=== PATIENT | female | born 1940 | race Caucasian/White ===

== ENCOUNTER 2018-03-10 14:56 | Inpatient (IN) ==
[2018-03-10] MEDS ORDERED: Naloxone 0.4 MG/ML INJ IVP PRN (20:41)
[2018-03-10] MEDS ORDERED: Acetaminophen 325 MG TABLET PO PRN (20:41)
[2018-03-10] MEDS ORDERED: *HR* HYDROcodone/Acet 5/325 mg TABLET PO PRN (20:41)
[2018-03-10] MEDS ORDERED: amLODIPine 5 MG TABLET PO ONE (20:43)
[2018-03-10] MEDS ORDERED: 0.9 % Sodium Chloride 500 ML IVC ONE (20:43)
[2018-03-10] MEDS ORDERED: Dextrose Gel 15 GM/37.5 ML TUBE PO PRN ×2 (20:48)
[2018-03-10] MEDS ORDERED: D5% in Water 1,000 ML IVC PRN (20:48)
[2018-03-10] MEDS ORDERED: *HR* Dextrose 50 % in Water (Syg) 50 ML SYRINGE IVP PRN (20:48)
--- NOTE | 2018-03-10 20:51 | Internal Med History&Physical ---
Date of Encounter: 03/10/18 Time of Encounter: 20:49 Internal Medicine - H&P: HPI Chief complaint: Fall Admitted From: Hospital to Hospital Transfer Plans for Post Hospital Care: Transfer Inp Rehab Fac History of present illness: Ms. Sol is a 78 year old female with Morbid Obesity, DM, HTN, Suspect CKD, who was transferred from another hospital for orthopedic evaluation following a mechanical fall. Patient is at baseline ambulatory with a cane and sometimes uses a wheelchair. She was in her usual state of health till this morning while going to the bathroom she tripped and fell face down. She states that she immediately noted that she could not move her right lower extremity. She denies chest pain, dizziness, palpitations prior to her fall. She had no neurologic deficits. She presented to outside facility where imaging workup revealed a right comminuted distal femoral fracture associated with complete destruction of the quadriceps tendon and patellar ligament. Additional workup revealed lactic acidosis with lactate of 3.2 which improved to 12.6, elevated creatinine otherwise normal CBC and urine analysis. C-spine and head and pelvic imaging were unremarkable. She was transferred here for orthopedic evaluation and surgery. The patient reports prior abdominal surgery without reaction to anesthesia. She has never smoked. She had no chest pain, leg swelling, or difficulty breathing prior to onset of her symptoms. She denies prior cardiac history. She has allergies to Avelox, quinapril, and Sudafed. Home medications are: Aspirin 81 mg daily, Darvocet-N 100 milligrams daily, Lasix 40 mg daily, Norvasc and Toprol. Laboratory evaluation at the bedside, she has no current complaints, pain control has been achieved She will be admitted as inpatient for evaluation by orthopedic surgery for total knee replacement . We will obtain stat labs including lactate and EKG for preop clearance. No current indication for echocardiogram. Past Med Surg Social Fam HX - Past Medical History Medical history: diabetes, hypertension All Systems PM: A 10-system review of systems was performed and is negative for pertinent findings except as documented above in the HPI. - Constitutional Constitutional: no chills, no fever(s), no night sweats - EENT Eyes: no change in vision, no discharge, no pain, no photophobia Ears: no ear discharge, no ear pain, no tinnitus Nose, mouth and throat: no dysphagia, no nasal discharge, no neck pain, no sore throat - Cardiovascular Cardiovascular ROS IM: as per HPI - Respiratory Respiratory: as per HPI - Gastrointestinal Gastrointestinal: no abdominal pain, no diarrhea, no hematemesis, no hematochezia, no melena, no nausea, no vomiting - Genitourinary Genitourinary: no change in urinary stream, no dysuria, no flank pain, no hematuria - Musculoskeletal Musculoskeletal ROS IM: as per HPI - Integumentary Integumentary IM: no rash, no unusual bruising - Neurological Neurological ROS: no confusion, no convulsions, no focal weakness, no numbness, no tingling, no tremor(s) - Hematologic/Lymphatic Hematologic/Lymphatic: no easy bruising - Constitutional Vitals: Temp Pulse Resp BP Pulse Ox 99.8 F H 86 20 124/73 95 03/10/18 20:21 03/10/18 20:21 03/10/18 20:21 03/10/18 20:21 03/10/18 20:21 General appearance: Present: A&O X 3, morbidly obese, pleasant, no acute distress - Head Head exam: Present: atraumatic, normocephalic - Eye Eye exam: Present: PERRL, conjuntiva pink, sclera anicteric Pupils: Present: PERRL - Neck Neck exam general surgery: Present: supple, trachea midline. Absent: lymphadenopathy - Respiratory Respiratory exam: Present: CTAB. Absent: accessory muscle use, rales, rhonchi, wheezes - Cardiovascular Cardiovascular exam: Present: RRR, +S1, +S2. Absent: diastolic murmur, gallop, rubs, systolic murmur - GI/Abdominal GI/Abdominal exam: Present: normal bowel sounds, soft, no peritoneal signs. Absent: distended, tenderness - Extremities Exam Extremities exam: Present: warm, radial pulses palpable and symmetrical. Absent : calf tenderness, cyanotic, pedal edema - Neurological Exam Neurological exam: Present: alert, CN II-XII intact, oriented X3, no focal deficits. Absent: pronater drift, facial droop, speech deficit - Skin Skin exam: Present: dry, intact - Assessment and plan (1) Morbid obesity with BMI of 50.0-59.9, adult Current Visit: Yes Status: Chronic Assessment and plan: Lifestyle modification. (2) Diabetes mellitus Current Visit: Yes Status: Chronic Assessment and plan: Patient with long-term diabetes mellitus type 2 on oral medications. Diabetic diet. Correctional dose insulin for now. Nothing by mouth from midnight for surgery tomorrow. Qualifiers: Diabetes mellitus type: type 2 Diabetes mellitus nursing home insulin use: without nursing home use Diabetes mellitus complication status: with unspecified complications Qualified Code(s): E11.8 - Type 2 diabetes mellitus with unspecified complications (3) Femoral fracture Current Visit: Yes Status: Acute Assessment and plan: Patient with comminuted completely displaced distal femoral fracture with disrupted quadriceps tendon and patellar ligament. Orthopedics has been consulted and spoke with Dr. Pearl who will evaluate the patient tonight. For possible surgery tomorrow. Ensure pain control. Patient with BMI of 50, DVT prophylaxis with Lovenox twice a day. Patient is low risk for cardiovascular events given her noncardiac history, with no cardiac symptoms preceding her fall. We will obtain a routine EKG Qualifiers: Encounter type: initial encounter Femur location: distal epiphysis Fracture type: closed Fracture alignment: displaced Laterality: right Qualified Code(s): S72.441A - Displaced fracture of lower epiphysis (separation ) of right femur, initial encounter for closed fracture (4) Hypertension Current Visit: Yes Status: Chronic Assessment and plan: Continue home Norvasc 5 mg daily, Toprol 100 mg daily. Hold Lasix and losartan due to renal insufficiency from labs from outside facility, and risk of worsening kidney function post-op Qualifiers: Hypertension type: essential hypertension Qualified Code(s): I10 - Essential (primary) hypertension (5) Lactic acidosis Current Visit: Yes Status: Acute Assessment and plan: Lactate of 3.28-2.68 from outside facility Repeat lactate here 1.4. Continue to monitor (6) Renal insufficiency Current Visit: Yes Status: Acute Assessment and plan: no prior labs to compare with Obtain stat chem 500cc bolus Obtain renal USS Possible CKD in patient with DM Avoid nephrotoxins, hold ARB, Lasix - Time Spent With Patient Total time spent is greater than 50% in coordination of care (as documented) at patient's floor/unit and/or counseling patient:
[2018-03-10] MEDS ORDERED: Insulin LISPRO 300 UNITS/3 ML VIAL SQ SCH (21:00)
[2018-03-10 21:08] LABS: Basophils % 0.2 %; Hematocrit 33.8 % (35.3-44.9); Hemoglobin 10.7 g/dL (11.5-15.4); Immature Granulocytes % 0.3 % (0-4); Lymphocytes # 0.6 K/mcL (0.6-4.6); Lymphocytes % 6.6 %; Mean Corpuscular HGB Conc 31.7 g/dL (31.6-35.5); Mean Corpuscular Hemoglobin 28.8 pg (28.0-33.3); Mean Corpuscular Volume 90.9 fL (83.0-100.0); Mean Platelet Volume 8.9 fL (9.4-12.4); Monocytes # 0.4 K/mcL (0.0-1.3); Monocytes % 4.4 %; Neutrophils # 8.3 K/mcL (1.6-8.9); Platelet Count 300 K/mcL (140-400); Red Blood Count 3.72 M/mcL (3.82-4.97); Red Cell Distribution Width 14.9 % (11.5-14.5); Segmented Neutrophils % 88.5 %
[2018-03-10 21:13] LABS: INR 1.1
[2018-03-10 21:15] LABS: Activated Partial Thrombo Time 30.6 Seconds (26.0-36.0)
[2018-03-10 21:26] LABS: Calcium 8.3 mg/dL (8.6-10.3); Potassium 4.2 mEq/L (3.5-5.1)
[2018-03-10 21:27] LABS: Estimated Average Glucose 143 mg/dl; Hemoglobin A1C 6.6 %
--- NOTE | 2018-03-10 21:39 | Anesthesia Evaluation PreOp ---
Date of Encounter: 03/10/18 Time of Encounter: 21:36 - Past History Planned Operation: R distal femoral replacement Cardiac History: HTN, Hyperlipidemia Pulmonary History: Denies Any Significant HX, Snore FAUCET POLISHER History: Denies Any Significant HX Other Medical History: Renal (renal insufficiency), Diabetes Type II, Other ( BMI 50) Anesthesia History: No Prior Anesthetic Complications, Past Anesthesia ( hysterectomy, cholecystectomy) - Meds/Allergy Pre-op Review Medications Reviewed: Yes Allergies Reviewed: Yes Beta Blockers on Current Med List: Yes Anesthesia Results - Labs 03/10/18 20:55 03/10/18 20:55 - Imaging EKG: pending Anesthesia Exam Vital Signs/O2 Sat, Most Current Temp Pulse Resp BP Pulse Ox 99.8 F H 86 20 124/73 95 03/10/18 20:21 03/10/18 20:21 03/10/18 20:21 03/10/18 20:21 03/10/18 20:21 - HEENT Pupil (Motor): Pupils equal, EOMI Mallampati: III Teeth: Edentulous Oral Opening: Greater than 3 - FAUCET POLISHER LOC: Oriented FAUCET POLISHER Motor: Normal RUE, Normal LUE, Normal LLE, Normal Face, Deficit RLE (femur fracture) FAUCET POLISHER Sensory: Normal: RUE, LUE, RLE, LLE, Face - Cardiac Rhythm: Regular - Pulmonary Breath Sounds: bilateral Clear Respiratory Effort: Symmetrical Anesthesia Assess/Plan ASA Score: 3 Modified Betsy Scale for Level of Consciousness: Cooperative, oriented, and tranquil Anesthetic Plan: General, Regional (R femoral nn block) Monitoring Plan: Standard Monitors Recovery Plan: PACU
[2018-03-10] MEDS: *HR* OxyCODONE Immed Rel 5 MG TABLET PO PRN (23:02)
[2018-03-11] MEDS: *HR* Enoxaparin 30 MG/0.3 ML SYRINGE SQ SCH ×2 (04:45→20:48)
[2018-03-11] MEDS: *HR* OxyCODONE Immed Rel 5 MG TABLET PO PRN ×3 (04:46→19:37)
[2018-03-11 06:15] LABS: Basophils % 0.2 %; Eosinophils % 0.2 %; Hematocrit 33.8 % (35.3-44.9); Hemoglobin 10.7 g/dL (11.5-15.4); Immature Granulocytes % 0.5 % (0-4); Lymphocytes # 0.9 K/mcL (0.6-4.6); Mean Corpuscular HGB Conc 31.7 g/dL (31.6-35.5); Mean Corpuscular Hemoglobin 28.7 pg (28.0-33.3); Mean Corpuscular Volume 90.6 fL (83.0-100.0); Mean Platelet Volume 9.1 fL (9.4-12.4); Monocytes # 0.5 K/mcL (0.0-1.3); Monocytes % 5.6 %; Neutrophils # 7.1 K/mcL (1.6-8.9); Platelet Count 300 K/mcL (140-400); Red Blood Count 3.73 M/mcL (3.82-4.97); Segmented Neutrophils % 83.5 %
[2018-03-11 06:32] LABS: Calcium 8.5 mg/dL (8.6-10.3)
[2018-03-11] MEDS: Insulin LISPRO 300 UNITS/3 ML VIAL SQ SCH ×4 (07:52→22:56)
--- NOTE | 2018-03-11 08:30 | Orthopedic Consult Note ---
Date of Encounter: 03/11/18 Time of Encounter: 08:29 History of Present Illness HPI: Ms. Sol is a 78 year old female With a fall yesterday with a fracture the right distal femur. Patient denies head trauma. Patient is neurovascularly intact decreased motion secondary pain x-rays reviewed show comminuted displaced distal femur fracture. Based on the patient's age and bone quality and fracture pattern recommendation is for right knee distal femoral replacement with total knee. We reviewed the risks and benefits as well as recovery. All questions were answered. The patient agreed to this treatment plan and appeared to understand the plan is reviewed. Past Med Surg Social Fam HX - Past Medical History Medical history: diabetes, hypertension - Social History Smoking Status: Never smoker Smokeless Tobacco Status: No Alcohol use: none Drug use: none - Family History Mother Adopted: Lindstrom: Dede Age: 50 Family Member Ethnicity: Non- Living Status: Age at : 50 Cause of : cancer Hx Family Cardiac Disorders: No Hx Family Respiratory Disorders: No Hx Family Cancer: Yes Hx Family GI Disorders: No Hx Family Genitourinary Disorders: No Hx Family Endocrine Disorder: No Hx Family Musculoskeletal Disorders: No Hx Family Neuromuscular Disorders: No Hx Family Neurologic Disorders: No Hx Family HEENT Disorders: No Hx Family Autoimmune Disorders: No Hx Family Reproductive Disorders: No Hx Family Psychosocial Disorders: No Hx Family Medical Disorders: No Medications and Allergies 3 Allergy/AdvReac Type Severity Reaction Status Date / Time moxifloxacin [From Avelox] Allergy Unknown unknown Verified 03/10/18 21:54 pseudoephedrine AdvReac Difficulty Verified 03/10/18 21:54 [From Sudafed] Breathing quinapril AdvReac Swelling Verified 03/10/18 21:54 of Lip/Tongue/Throat All Systems Reviewed: The remainder of the systems were reviewed and are negative Physical Exam - Constitutional Vitals: Temp Pulse Resp BP Pulse Ox 98.2 F 84 16 138/59 95 03/11/18 06:32 03/11/18 06:32 03/11/18 06:32 03/11/18 06:32 03/11/18 06:32 Results - Labs Result Diagrams: 03/11/18 05:59 03/11/18 05:59 Labs: Abnormal lab results RBC 3.73 M/mcL (3.82-4.97) L 03/11/18 05:59 Hgb 10.7 g/dL (11.5-15.4) L 03/11/18 05:59 Hct 33.8 % (35.3-44.9) L 03/11/18 05:59 RDW 15.0 % (11.5-14.5) H 03/11/18 05:59 MPV 9.1 fL (9.4-12.4) L 03/11/18 05:59 Creatinine 1.42 mg/dL (0.60-1.20) H 03/11/18 05:59 Est GFR ( Amer) 43 (> 60) L 03/11/18 05:59 Est GFR (Non-Af Amer) 36 (> 60) L 03/11/18 05:59 Glucose 148 mg/dL (70-105) H 03/11/18 05:59 POC Glucose 142 mg/dL (70-99) H 03/11/18 07:42 Hemoglobin A1c 6.6 % (-5.6) H 03/10/18 20:55 Calcium 8.5 mg/dL (8.6-10.3) L 03/11/18 05:59 H & H 03/10/18 03/11/18 Range/Units 20:55 05:59 Hgb 10.7 L 10.7 L (11.5-15.4) g/dL Hct 33.8 L 33.8 L (35.3-44.9) % All other labs normal. Consult Discharge Plan - Plan Referrals: Eliazar Rubio DO [Primary Care Provider] -
[2018-03-11] MEDS ORDERED: Aspirin Enteric Coated 81 MG Tablet PO SCH (09:00)
[2018-03-11] MEDS ORDERED: Metoprolol XL (24 HR) Succ 50 MG TAB.ER.24H PO SCH (09:00)
[2018-03-11] MEDS ORDERED: amLODIPine 5 MG TABLET PO SCH (09:00)
[2018-03-11] MEDS: Ondansetron 4 MG/2 ML VIAL IVP PRN ×2 (09:16→19:50)
--- NOTE | 2018-03-11 15:18 | Electrocardiograph Report ---
[place] [id number] Test Date: 2018-03-10 Pat Name: Bryanna Sol Department: 114 Room: [facility] Gender: F Meat Passer: SHANNAN : 1940 Requested By: Danny Berger Order Number: [id number] Reading MD: Karina Bustos Measurements Intervals [place] Rate: 88 P: -15 [place]: 150 QRS: 43 QRSD: 93 T: 170 QT: 378 QTc: 424 Interpretive Statements ARTIFACT LIMITS INTERPRETATION RECOMMEND REPEAT ECG Electronically Signed On 03-11-2018 15:17:00 EDT by Karina Bustos
[2018-03-11] MEDS ORDERED: ROPIVACAINE HCL/PF 0.5% 30 ML VIAL ONE (16:03)
[2018-03-11] MEDS ORDERED: *HR* FentaNYL (PF) 100 MCG/2 ML VIAL ONE (16:10)
[2018-03-11] MEDS ORDERED: *HR* Midazolam HCl 2 MG/2 ML VIAL ONE ×2 (16:11→16:12)
[2018-03-11] MEDS ORDERED: *HR* Midazolam HCl 5 MG/5 ML VIAL IVP ONE (16:11)
[2018-03-11] MEDS ORDERED: *HR* Propofol 200 MG/20 ML VIAL IVP ONE (16:11)
[2018-03-11] MEDS ORDERED: Ethanol\\Acetic Acid\\Na Ace\\Ben 1,000 ML IRRIG.SOLN IR ONE (16:13)
[2018-03-11] MEDS ORDERED: *HR* Succinylcholine 200 MG/10 ML VIAL IVP ONE (16:13)
[2018-03-11] MEDS ORDERED: Lidocaine -MPF 2% 2 ML VIAL ONE (16:13)
[2018-03-11] MEDS ORDERED: Lidocaine -MPF 4% 5 ML AMPUL ONE (16:14)
[2018-03-11] MEDS ORDERED: Bupivacaine/Clonidine Syringe 1 EACH SYRINGE ONE (16:20)
--- NOTE | 2018-03-11 17:31 | Internal Med Progress Note ---
Date of Encounter: 03/11/18 Time of Encounter: 12:20 - Assessment and plan (1) Femoral fracture Current Visit: Yes Status: Acute Assessment and plan: ER imaging workup revealed a right comminuted distal femoral fracture associated with complete destruction of the quadriceps tendon and patellar ligament. Orthopedic surgery consulted, plan for right knee distal femoral replacement with total knee. Continue pain control with when necessary oxycodone. Physical and occupational therapy evaluation post surgery. Qualifiers: Encounter type: initial encounter Femur location: distal epiphysis Fracture type: closed Fracture alignment: displaced Laterality: right Qualified Code(s): S72.441A - Displaced fracture of lower epiphysis (separation ) of right femur, initial encounter for closed fracture (2) Morbid obesity with BMI of 50.0-59.9, adult Current Visit: Yes Status: Chronic (3) Diabetes mellitus Current Visit: Yes Status: Chronic Assessment and plan: Blood sugars noted to be well controlled. Continue Accu-Chek blood glucose monitoring with sliding scale insulin. Diabetic diet. Qualifiers: Diabetes mellitus type: type 2 Diabetes mellitus remote computer terminal operator insulin use: without remote computer terminal operator use Diabetes mellitus complication status: with unspecified complications Qualified Code(s): E11.8 - Type 2 diabetes mellitus with unspecified complications (4) Hypertension Current Visit: Yes Status: Chronic Qualifiers: Hypertension type: essential hypertension Qualified Code(s): I10 - Essential (primary) hypertension (5) Lactic acidosis Current Visit: Yes Status: Resolved Assessment and plan: Unclear etiology. Improved with IV hydration. No evidence of infection. (6) Chronic kidney disease, stage 3 Current Visit: Yes Status: Chronic Assessment and plan: Serum creatinine at baseline, 1.42 today. Continue to monitor closely. - Time Spent With Patient Total time spent is greater than 50% in coordination of care (as documented) at patient's floor/unit and/or counseling patient: - Subjective Interval history: Continues to have significant right knee and leg pain. No chest pain, shortness of breath, fever, chills. Awaiting orthopedic surgery this evening. - Constitutional Vitals: Temp Pulse Resp BP Pulse Ox 98.3 F 79 16 152/67 99 03/11/18 12:34 03/11/18 16:40 03/11/18 16:40 03/11/18 16:40 03/11/18 16:40 General appearance: Present: mild distress, A&O X 3, morbidly obese, answers questions appropriately - Respiratory Respiratory exam: Present: CTAB (Coarse breath sounds bilaterally). Absent: accessory muscle use, rales, rhonchi, wheezes - Cardiovascular Cardiovascular exam: Present: RRR, +S1, +S2. Absent: diastolic murmur, gallop, rubs, systolic murmur - GI/Abdominal GI/Abdominal exam: Present: normal bowel sounds, soft (obese), no peritoneal signs. Absent: distended, tenderness - Extremities Exam Extremities exam: Present: pedal edema, warm, radial pulses palpable and symmetrical. Absent: calf tenderness, cyanotic Additional comments: right knee tenderness - Neurological Exam Neurological exam: Present: CN II-XII intact, oriented X3, no focal deficits. Absent: pronater drift, facial droop, speech deficit Internal Medicine: Result - Labs CBC & Chem 7: 03/11/18 05:59 03/11/18 05:59 Labs: Short CBC 03/10/18 03/11/18 Range/Units 20:55 05:59 WBC 9.4 8.5 (4.3-11.1) K/mcL Hgb 10.7 L 10.7 L (11.5-15.4) g/dL Hct 33.8 L 33.8 L (35.3-44.9) % Plt Count 300 300 (140-400) K/mcL Neutrophils # 8.3 7.1 (1.6-8.9) K/mcL BMP 03/10/18 03/11/18 20:55 05:59 Sodium 137 139 Potassium 4.2 4.0 Chloride 102 103 Carbon Dioxide 28 26 BUN 23 22 Creatinine 1.41 H 1.42 H Glucose 190 H 148 H Calcium 8.3 L 8.5 L - ABG Interpretation ABG results: PT/INR, D-dimer PT 12.0 Seconds (9.4-12.1) 03/10/18 20:55 - Impressions Impressions Femur X-Ray 03/10/18 21:47 IMPRESSION: Comminuted, impacted, angulated and displaced distal femur fracture. D/ / Miko Rutherford MD / Miko Rutherford MD Interpreting Provider: Miko Rutherford MD Consult Discharge Plan - Plan Referrals: Eliazar Rubio DO [Primary Care Provider] -
[2018-03-11] MEDS ORDERED: Propofol 500 MG/50 ML INFUS..BTL ONE (17:51)
--- NOTE | 2018-03-11 18:10 | Anesthesia Procedures ---
Date of Encounter: 03/11/18 Time of Encounter: 16:45 Procedures: Anesthesia - Nerve Block Procedure Date: 03/11/18 Time: 16:45 Allergies/Adv Reactions: see chart Pre-op Diagnosis: right distal femur fx Surgical Procedure: total knee right Checklist: Correct Patient Identifier, Correct procedure, History checked (with kim jacob crna) Correct side: Right Blood Thinner: No Monitor Applied: EKG, BP, Pulse Oximetry Supplemental Oxygen via Nasal Cannula (L/min): 2 Sedation: Versed (mg): 2 Sedation: Fentanyl (mcg): 50 Indication: Post Op Analgesia Pre-op Neuro Deficits: No Block Type: Femoral Catheter placed: No Sterile Technique: Yes Ultrasound used: Yes Anatomy identified: Yes Visual spread of Local: Yes Neuro Stimulation: Yes Nerve Stimulator Range: 0.2 - 0.4 mA Blood on Needle Aspiration: No Smooth Injection of Local: Yes Pain with Injection of Local: No Prep: Chlorhexadine Needle: 21 x 100 mm Stimuplex Local: Ropivacaine Volume (cc): 30 Number of Attempts: 1 Complications: None/effective block Vitals: see nurses notes for vitals patient stable throughout
[2018-03-11] MEDS ORDERED: ceFAZolin 3,000 MG in Water for inj. (sterile) 30 ML IVP ONE (18:17)
[2018-03-11] MEDS ORDERED: Dexamethasone 4 MG/ML VIAL ONE (18:21)
[2018-03-11] MEDS ORDERED: Ondansetron 4 MG/2 ML VIAL ONE (18:21)
[2018-03-11] MEDS ORDERED: *HR* Meperidine 25 MG/ML SYRINGE IVP PRN (18:56)
[2018-03-11] MEDS ORDERED: MORPHINE SUL Oral CONC 10 MG/0.5 ML ORAL.SYG SL PRN (18:56)
[2018-03-11] MEDS ORDERED: *HR* Promethazine 25 MG/ML VIAL IVP PRN (18:56)
[2018-03-11] MEDS ORDERED: *HR* Labetalol 20 MG/4 ML SYRINGE IVP PRN (18:56)
[2018-03-11] MEDS ORDERED: *HR* OxyCODONE Immed Rel 5 MG TABLET PO PRN (18:56)
--- NOTE | 2018-03-11 19:17 | Orthopedic Operative Note ---
Date of procedure: 03/11/18 Pre-op diagnosis: Displaced comminuted right distal femur fracture Post-op diagnosis: same Procedure: IProcedure: Right is still femoral total knee replacement Estimated blood loss: 500 mL Hardware: Biomet distal femoral replacement 7 cm femur, 3 cm segment, 15.5 x 150 stem, 67 x 160 tibia 12 Natalia 34 patella Auxiliary components tibial bushing axle femoral bushings lock pin Dictation of procedure: Patient brought to the operating placed on the operating table after general anesthesia was administered the left lower extremity was prepped and draped in the sterile surgical fashion the patient received IV antibiotics prior to incision. A longitudinal incision was made centered over the patella. The incision was made through the skin and subcutaneous tissue hemostasis was obtained with Bovie cautery. Using careful sharp dissection the extensor mechanism was identified. A medial parapatellar approach was performed. To preserve tissue along the medial aspect of the patella to protect the patella tendon. Using careful sharp dissection a field PCL medial lateral menisci were excised. Patient had a comminuted displaced fracture distal femur. The distal femoral fracture fragment and its pieces were dissected free subperiosteally. The tibia was prepared first was reamed to 160 stem stem. The tibia was sized to 67 This was a monoblock construct had good fit and fixation. Attention was then turned to the femur. The femur was reamed up to a size 15.5 x 150 A 15 trial stem was impacted in place and the 30 segment was dialed in. With the 12 trial Natalia elected. Full flexion full extension no instability, the patella was everted the patella cut was made along the quadriceps and patella tendon. The patella sized to a 3444 Was seated lug holes are drilled. Patient had excellent patella tracking. All trial components were removed. The knee sat for 2 minutes with a antibacterial solution while components were assembled on the back table. The monoblock tibia cemented first and impacted in place. The femoral component once assembled was impacted in place in the appropriate orientation. The tibial bushing the femoral bushings were locked in place the axle was used to articulate the tibial and femoral components and this was secured with the locking pin. The patella was cemented and held in place with patellar holding clamp. After the cement hardened the knee was taken through range of motion and had excellent patella tracking. The knee was irrigated out pulse irrigation. The extensor mechanism was closed with a running # 2 FiberWire suture and a #2 PDS suture. The deep tissue was irrigated and closed with #2 PDS suture superficially with 0 PDS suture skin was closed with skin meeta. Patient placed in a sterile dressing postoperative brace extubated transferred to recovery room in stable condition. Anesthesia: GETA Surgeon: Baljeet Souza Was there an loan officer assistant present: No Estimated blood loss (cc): 500 Condition: stable Disposition: PACU
[2018-03-11 19:55] LABS: Hematocrit 30.7 % (35.3-44.9); Hemoglobin 9.7 g/dL (11.5-15.4)
[2018-03-11] MEDS ORDERED: Acetaminophen IV 1,000 MG/100 ML INFUS..BTL ONE (20:15)
[2018-03-11] MEDS ORDERED: Acetaminophen IV 1,000 MG/100 ML INFUS..BTL IVPB ONE (20:30)
[2018-03-11] MEDS ORDERED: D5% in Water 1,000 ML IVC PRN (20:50)
[2018-03-11] MEDS ORDERED: Naloxone 0.4 MG/ML INJ IVP PRN (20:50)
[2018-03-11] MEDS ORDERED: Ringers Solution, Lactated 1,000 ML IVC SCH (20:50)
[2018-03-11] MEDS ORDERED: Temazepam 15 MG CAPSULE PO PRN (20:50)
[2018-03-11] MEDS ORDERED: Dextrose Gel 15 GM/37.5 ML TUBE PO PRN ×2 (20:50)
[2018-03-11] MEDS ORDERED: MOM Conc 10 ML UD.LIQ PO PRN (20:50)
[2018-03-11] MEDS ORDERED: *HR* Dextrose 50 % in Water (Syg) 50 ML SYRINGE IVP PRN (20:50)
[2018-03-11] MEDS ORDERED: Ondansetron 4 MG/2 ML VIAL IVP PRN (20:50)
[2018-03-11] MEDS ORDERED: Sennosides 8.6 MG TABLET PO PRN (20:50)
--- NOTE | 2018-03-11 20:59 | Anesthesia Evaluation Post Op ---
Date of Encounter: 03/11/18 Time of Encounter: 20:58 - Vital Signs Vital Signs: Vital Signs/O2 Sat, Most Current Temp Pulse Resp BP Pulse Ox 97.3 F L 75 20 139/67 100 03/11/18 20:39 03/11/18 20:39 03/11/18 20:39 03/11/18 20:39 03/11/18 20:39 - Lungs Lungs: Clear Ascult./Percussion - Airway Airway: Non-obstructed - Cardiovascular Regular Rate - Mental Status Mental Status: Alert & Oriented, Answers Appropriately - Pain Pain Scale used: Numeric (1 - 10) (tolerable) - Hydration Hydration: Ice chips - Discharge PostOp Status: Transfer Patient to floor
[2018-03-11] MEDS: *HR* HYDROcodone/Acet 5/325 mg TABLET PO PRN (22:57)
[2018-03-12] MEDS: CeFAZolin Syr 3,000MG/30 ML 3,000 MG/30 ML SYRINGE IVPB SCH ×2 (00:06→08:11)
[2018-03-12] MEDS: *HR* OxyCODONE Immed Rel 5 MG TABLET PO PRN ×2 (04:08→10:50)
[2018-03-12 05:08] LABS: Hematocrit 26.3 % (35.3-44.9); Hemoglobin 8.2 g/dL (11.5-15.4)
[2018-03-12] MEDS: *HR* HYDROcodone/Acet 5/325 mg TABLET PO PRN ×2 (05:42→17:10)
[2018-03-12] MEDS: *HR* Enoxaparin 30 MG/0.3 ML SYRINGE SQ SCH ×2 (05:43→17:51)
[2018-03-12] MEDS ORDERED: Furosemide 20 MG/2 ML VIAL IVP ONE ×2 (06:42→17:49)
[2018-03-12] MEDS: Aspirin Enteric Coated 81 MG Tablet PO SCH (08:11)
[2018-03-12] MEDS: amLODIPine 5 MG TABLET PO SCH (08:11)
[2018-03-12] MEDS: Metoprolol XL (24 HR) Succ 50 MG TAB.ER.24H PO SCH (08:12)
[2018-03-12] MEDS: Insulin LISPRO 300 UNITS/3 ML VIAL SQ SCH ×4 (08:18→21:07)
[2018-03-12] MEDS: *HR* Pioglitazone 15 MG TABLET PO SCH (09:30)
--- NOTE | 2018-03-12 09:45 | Orthopedics Progress Note ---
Date of Encounter: 03/12/18 Time of Encounter: 09:45 Subjective Interval history: Patient was seen this morning doing well without complaints. Afebrile vital signs stable. Operative extremity: Neurovascularly intact Dressing clean dry and intact Calves nontender Assessment and plan: Continue with postoperative care Hemoglobin 8.2 transfuse 2 units. Objective Vital signs: Vital Signs Temp Pulse Resp BP Pulse Ox 03/12/18 06:48 97.8 F 80 17 123/52 97 03/12/18 04:46 97.9 F 78 16 120/54 93 03/12/18 00:01 68 15 134/56 2 03/11/18 23:37 97.8 F 68 14 130/52 98 03/11/18 22:55 98.5 F 73 16 136/48 95 03/11/18 22:00 98.3 F 78 16 150/62 92 03/11/18 21:30 97.6 F 86 16 91 03/11/18 21:00 98.2 F 78 16 144/65 91 03/11/18 20:39 97.3 F L 75 20 139/67 100 03/11/18 20:29 97.3 F L 75 20 151/66 100 03/11/18 20:19 78 16 149/68 99 03/11/18 20:09 78 20 131/71 91 03/11/18 19:59 97.7 F 79 20 144/68 93 03/11/18 19:49 80 20 128/61 93 03/11/18 19:39 77 20 138/54 94 03/11/18 19:29 98.2 F 86 20 150/67 96 03/11/18 16:40 79 16 152/67 99 03/11/18 12:34 98.3 F 80 16 136/57 94 Intake and Output 03/11/18 03/12/18 03/12/18 23:59 07:59 15:59 Intake Total 30 / 30 Output Total 500 / 500 200 / 200 Balance -500 / -500 -170 / -170 Intake: IV Fluids 30 / 30 Ancef Syringe 3,000 MG/30 ML 3, 30 / 30 000 mg In 30 ml @ 200 mls/hr IVPB Q8HR YUNIEL Rx#:[id number] Output: Estimated Blood Loss 500 / 500 Catheter 200 / 200 Other: Blood Glucose* 184 189 - Labs CBC & BMP: 03/12/18 04:00 03/11/18 05:59 Labs: Abnormal lab results RBC 3.73 M/mcL (3.82-4.97) L 03/11/18 05:59 Hgb 8.2 g/dL (11.5-15.4) L D 03/12/18 04:00 Hct 26.3 % (35.3-44.9) L 03/12/18 04:00 RDW 15.0 % (11.5-14.5) H 03/11/18 05:59 MPV 9.1 fL (9.4-12.4) L 03/11/18 05:59 Creatinine 1.42 mg/dL (0.60-1.20) H 03/11/18 05:59 Est GFR ( Amer) 43 (> 60) L 03/11/18 05:59 Est GFR (Non-Af Amer) 36 (> 60) L 03/11/18 05:59 Glucose 148 mg/dL (70-105) H 03/11/18 05:59 POC Glucose 189 mg/dL (70-99) H 03/12/18 07:50 Hemoglobin A1c 6.6 % (-5.6) H 03/10/18 20:55 Calcium 8.5 mg/dL (8.6-10.3) L 03/11/18 05:59 - VTE Documentation of Mechanical Device: Venous foot pump, device Consult Discharge Plan - Plan Referrals: Eliazar Rubio DO [Primary Care Provider] -
[2018-03-12 12:04] LABS: Calcium 8.4 mg/dL (8.6-10.3); Potassium 4.4 mEq/L (3.5-5.1)
[2018-03-12] MEDS: *HR* Morphine Sulfate SR (12 HR) 30 MG TABLET.ER PO SCH ×2 (13:03→21:07)
[2018-03-12] MEDS ORDERED: 0.9 % Sodium Chloride 250 ML ONE ×2 (13:41→20:56)
--- NOTE | 2018-03-12 16:48 | Internal Med Progress Note ---
Date of Encounter: 03/12/18 Time of Encounter: 12:20 - Assessment and plan (1) Femoral fracture Current Visit: Yes Status: Acute Assessment and plan: ER imaging workup revealed a right comminuted distal femoral fracture associated with complete destruction of the quadriceps tendon and patellar ligament. Orthopedic surgery on board, underwent right knee distal femoral replacement with total knee, postoperative day 1. Continue pain control with when necessary oxycodone. Restart home dose of extended release morphine sulfate. Noted to have postoperative blood loss anemia, hemoglobin dropped to 8.2. 2 units PRBC have been ordered by orthopedics. Physical and occupational therapy evaluation noted, recommend inpatient rehabilitation placement. Consult social insurance administrator. Qualifiers: Encounter type: initial encounter Femur location: distal epiphysis Fracture type: closed Fracture alignment: displaced Laterality: right Qualified Code(s): S72.441A - Displaced fracture of lower epiphysis (separation ) of right femur, initial encounter for closed fracture (2) Morbid obesity with BMI of 50.0-59.9, adult Current Visit: Yes Status: Chronic (3) Diabetes mellitus Current Visit: Yes Status: Chronic Assessment and plan: Blood sugars noted to be fairly controlled. Continue Accu-Chek blood glucose monitoring with sliding scale insulin. Patient refuses subcutaneous insulin, has been restarted on home dose of Actos. Diabetic diet. Qualifiers: Diabetes mellitus type: type 2 Diabetes mellitus lobsterman insulin use: without lobsterman use Diabetes mellitus complication status: with unspecified complications Qualified Code(s): E11.8 - Type 2 diabetes mellitus with unspecified complications (4) Hypertension Current Visit: Yes Status: Chronic Qualifiers: Hypertension type: essential hypertension Qualified Code(s): I10 - Essential (primary) hypertension (5) Lactic acidosis Current Visit: Yes Status: Resolved (6) Chronic kidney disease, stage 3 Current Visit: Yes Status: Chronic Assessment and plan: Unknown baseline, no previous labs available. Serum creatinine slightly worse at 1.69 today. Check CK to rule out rhabdomyolysis due to significant fall and myalgia. Continue to hold diuretic and ARB. Continue IV hydration and monitor serum creatinine closely. Renal ultrasound has been ordered but patient refuses. - Time Spent With Patient Total time spent is greater than 50% in coordination of care (as documented) at patient's floor/unit and/or counseling patient: - Subjective Interval history: Reports generalized body aches along with significant bilateral knee pain and muscle spasms. Refuses to get out of bed to use bedside commode due to pain. No fever, chills, nausea, vomiting or diarrhea. - Constitutional Vitals: Temp Pulse Resp BP Pulse Ox 99.1 F 94 18 126/76 93 03/12/18 16:22 03/12/18 16:22 03/12/18 16:22 03/12/18 16:22 03/12/18 16:22 General appearance: Present: mild distress, A&O X 3, morbidly obese, answers questions appropriately - Respiratory Respiratory exam: Present: decreased breath sounds (Bilateral bases), CTAB. Absent: accessory muscle use, rales, rhonchi, wheezes - Cardiovascular Cardiovascular exam: Present: RRR, +S1, +S2. Absent: diastolic murmur, gallop, rubs, systolic murmur - GI/Abdominal GI/Abdominal exam: Present: normal bowel sounds, soft (obese), no peritoneal signs. Absent: distended, tenderness - Extremities Exam Extremities exam: Present: warm, radial pulses palpable and symmetrical. Absent : calf tenderness, cyanotic, pedal edema Additional comments: Status post right knee surgery Internal Medicine: Result - Labs CBC & Chem 7: 03/12/18 04:00 03/12/18 11:35 Labs: Short CBC 03/11/18 03/12/18 Range/Units 19:46 04:00 Hgb 9.7 L 8.2 L D (11.5-15.4) g/dL Hct 30.7 L 26.3 L (35.3-44.9) % BMP 03/12/18 11:35 Sodium 138 Potassium 4.4 Chloride 102 Carbon Dioxide 29 BUN 25 H Creatinine 1.69 H Glucose 192 H Calcium 8.4 L - ABG Interpretation ABG results: PT/INR, D-dimer PT 12.0 Seconds (9.4-12.1) 03/10/18 20:55 - Impressions Impressions Knee X-Ray 03/11/18 17:42 IMPRESSION: Interval placement of metallic right knee prosthesis. D/ / Elizabeth Craft Cha, MD / Elizabeth Craft Cha, MD Interpreting Provider: Elizabeth Craft Cha, MD - VTE Documentation of Mechanical Device: Venous foot pump, device Consult Discharge Plan - Plan Referrals: Eliazar Rubio DO [Primary Care Provider] -
[2018-03-13] MEDS ORDERED: Furosemide 20 MG/2 ML VIAL IVP ONE (00:13)
[2018-03-13] MEDS: *HR* HYDROcodone/Acet 5/325 mg TABLET PO PRN ×4 (00:30→18:47)
[2018-03-13 02:37] LABS: Hematocrit 29.3 % (35.3-44.9); Hemoglobin 9.3 g/dL (11.5-15.4)
[2018-03-13 02:56] LABS: Potassium 3.8 mEq/L (3.5-5.1)
[2018-03-13] MEDS: Acetaminophen 325 MG TABLET PO PRN ×2 (03:47→11:19)
[2018-03-13] MEDS: *HR* Enoxaparin 30 MG/0.3 ML SYRINGE SQ SCH ×2 (06:24→16:39)
[2018-03-13] MEDS: Insulin LISPRO 300 UNITS/3 ML VIAL SQ SCH ×4 (08:31→21:48)
[2018-03-13] MEDS: *HR* Pioglitazone 15 MG TABLET PO SCH (08:35)
[2018-03-13] MEDS: Aspirin Enteric Coated 81 MG Tablet PO SCH (08:35)
[2018-03-13] MEDS: amLODIPine 5 MG TABLET PO SCH (08:35)
[2018-03-13] MEDS: *HR* Morphine Sulfate SR (12 HR) 30 MG TABLET.ER PO SCH ×2 (08:35→21:47)
[2018-03-13] MEDS: Metoprolol XL (24 HR) Succ 50 MG TAB.ER.24H PO SCH (08:35)
[2018-03-13] MEDS ORDERED: Ringers Solution, Lactated 1,000 ML IVC SCH (12:00)
--- NOTE | 2018-03-13 16:20 | Internal Med Progress Note ---
Date of Encounter: 03/13/18 Time of Encounter: 12:15 - Assessment and plan (1) Femoral fracture Current Visit: Yes Status: Acute Assessment and plan: ER imaging workup revealed a right comminuted distal femoral fracture associated with complete destruction of the quadriceps tendon and patellar ligament. Orthopedic surgery on board, underwent right knee distal femoral replacement with total knee, postoperative day 2. Continue pain control with when necessary Oxycodone and extended release morphine sulfate. Improved postoperative blood loss anemia, hemoglobin improved to 9.3. Physical and occupational therapy evaluation noted, recommend inpatient rehabilitation placement. hvac services professional on board. Qualifiers: Encounter type: initial encounter Femur location: distal epiphysis Fracture type: closed Fracture alignment: displaced Laterality: right Qualified Code(s): S72.441A - Displaced fracture of lower epiphysis (separation ) of right femur, initial encounter for closed fracture (2) Morbid obesity with BMI of 50.0-59.9, adult Current Visit: Yes Status: Chronic Assessment and plan: Lifestyle modification. (3) Diabetes mellitus Current Visit: Yes Status: Chronic Assessment and plan: Blood sugars noted to be fairly controlled. Continue Accu-Chek blood glucose monitoring with sliding scale insulin. Patient refuses subcutaneous insulin, has been restarted on home dose of Actos. Diabetic diet. Qualifiers: Diabetes mellitus type: type 2 Diabetes mellitus chcf insulin use: without chcf use Diabetes mellitus complication status: with unspecified complications Qualified Code(s): E11.8 - Type 2 diabetes mellitus with unspecified complications (4) Hypertension Current Visit: Yes Status: Chronic Qualifiers: Hypertension type: essential hypertension Qualified Code(s): I10 - Essential (primary) hypertension (5) Lactic acidosis Current Visit: Yes Status: Resolved (6) Chronic kidney disease, stage 3 Current Visit: Yes Status: Chronic Assessment and plan: Unknown baseline, no previous labs available. Serum creatinine slightly improved to 1.55 today. CK elevated at 700s; continue IV hydration. Continue to hold diuretic and ARB. Continue IV hydration and monitor serum creatinine closely. Renal ultrasound has been ordered but patient refuses. - Time Spent With Patient Total time spent is greater than 50% in coordination of care (as documented) at patient's floor/unit and/or counseling patient: - Subjective Interval history: Continues to report generalized body aches, specifically right knee and leg. Continues to refuse to get out of bed to use bedside commode and insists on using bedpan. No chest pain, shortness of breath, fever, chills or any other complaints. Anticipate discharge in a.m. - Constitutional Vitals: Temp Pulse Resp BP Pulse Ox 98.4 F 87 16 138/74 97 03/13/18 09:36 03/13/18 09:36 03/13/18 09:36 03/13/18 09:36 03/13/18 11:19 General appearance: Present: A&O X 3, morbidly obese, answers questions appropriately - Respiratory Respiratory exam: Present: CTAB. Absent: accessory muscle use, rales, rhonchi, wheezes - Cardiovascular Cardiovascular exam: Present: RRR, +S1, +S2. Absent: diastolic murmur, gallop, rubs, systolic murmur - GI/Abdominal GI/Abdominal exam: Present: normal bowel sounds, soft, no peritoneal signs. Absent: distended, tenderness - Extremities Exam Extremities exam: Present: warm, radial pulses palpable and symmetrical. Absent : calf tenderness, cyanotic, pedal edema Internal Medicine: Result - Labs CBC & Chem 7: 03/13/18 02:05 03/13/18 02:05 Labs: Short CBC 03/13/18 Range/Units 02:05 Hgb 9.3 L (11.5-15.4) g/dL Hct 29.3 L (35.3-44.9) % BMP 03/13/18 02:05 Sodium 138 Potassium 3.8 Chloride 103 Carbon Dioxide 30 H BUN 22 Creatinine 1.55 H Glucose 150 H Calcium 8.0 L - ABG Interpretation ABG results: PT/INR, D-dimer PT 12.0 Seconds (9.4-12.1) 03/10/18 20:55 - VTE Documentation of Mechanical Device: Venous foot pump, device Consult Discharge Plan - Plan Referrals: Eliazar Rubio DO [Primary Care Provider] -
--- NOTE | 2018-03-13 17:57 | Orthopedics Progress Note ---
Date of Encounter: 03/13/18 Time of Encounter: 17:55 Subjective Principal diagnosis: femur fracture, s/p distal femoral replacement Interval history: The patient is without complaints. Afebrile vital signs are stable. Incision is clean dry and intact. Neurovascularly intact with regard to bilateral lower extremities. Brisk capillary refill with sensation intact to light test distally. Assessment :stable. Plan mobilize ,continue analgesics, discharge planning. Objective Vital signs: Vital Signs Temp Pulse Resp BP Pulse Ox 03/13/18 11:19 97 03/13/18 09:36 98.4 F 87 16 138/74 96 03/13/18 06:28 98.7 F 83 14 136/78 98 03/13/18 05:25 98.5 F 79 15 131/76 97 03/13/18 00:20 100.1 F H 87 16 113/58 97 03/12/18 21:53 99.2 F 79 15 147/66 99 03/12/18 21:38 99 F 83 15 130/65 99 03/12/18 19:05 98.6 F 91 16 129/68 98 Intake and Output 03/13/18 03/13/18 03/13/18 07:59 15:59 23:59 Intake Total 900 / 900 350 / 350 Output Total 625 / 625 800 / 800 Balance 275 / 275 -450 / -450 Intake: Oral 600 / 600 350 / 350 Blood Product 300 / 300 Rbcs Leuko Poor As-1 Unit 300 / 300 [id number] Output: Urine 625 / 625 800 / 800 Other: Meal Lunch Percent of Meal Consumed 60% Blood Glucose* 132 151 124 - Labs CBC & BMP: 03/13/18 02:05 03/13/18 02:05 Labs: Abnormal lab results RBC 3.73 M/mcL (3.82-4.97) L 03/11/18 05:59 Hgb 9.3 g/dL (11.5-15.4) L 03/13/18 02:05 Hct 29.3 % (35.3-44.9) L 03/13/18 02:05 RDW 15.0 % (11.5-14.5) H 03/11/18 05:59 MPV 9.1 fL (9.4-12.4) L 03/11/18 05:59 Carbon Dioxide 30 mEq/L (23-29) H 03/13/18 02:05 Creatinine 1.55 mg/dL (0.60-1.20) H 03/13/18 02:05 Est GFR ( Amer) 39 (> 60) L 03/13/18 02:05 Est GFR (Non-Af Amer) 32 (> 60) L 03/13/18 02:05 Glucose 150 mg/dL (70-105) H 03/13/18 02:05 POC Glucose 179 mg/dL (70-99) H 03/12/18 20:06 Hemoglobin A1c 6.6 % (-5.6) H 03/10/18 20:55 Calcium 8.0 mg/dL (8.6-10.3) L 03/13/18 02:05 Creatine Kinase 756 Units/L (30-223) H 03/12/18 18:29 - VTE Documentation of Mechanical Device: Venous foot pump, device Consult Discharge Plan - Plan Referrals: Eliazar Rubio DO [Primary Care Provider] -
[2018-03-14] MEDS: *HR* HYDROcodone/Acet 5/325 mg TABLET PO PRN ×2 (01:19→12:27)
[2018-03-14] MEDS: *HR* Enoxaparin 30 MG/0.3 ML SYRINGE SQ SCH (05:54)
[2018-03-14 06:07] LABS: Potassium 3.9 mEq/L (3.5-5.1)
--- NOTE | 2018-03-14 06:40 | Orthopedics Progress Note ---
Date of Encounter: 03/14/18 Time of Encounter: 06:39 Subjective Principal diagnosis: femur fracture, s/p distal femoral replacement Interval history: Patient was seen this morning doing well without complaints. Afebrile vital signs stable. Operative extremity: Neurovascularly intact Dressing clean dry and intact Calves nontender Assessment and plan: Continue with postoperative care ortho stable for dc Objective Vital signs: Vital Signs Temp Pulse Resp BP Pulse Ox 03/13/18 23:41 98.8 F 58 15 122/65 96 03/13/18 20:02 98.9 F 77 16 131/56 95 03/13/18 11:19 97 03/13/18 09:36 98.4 F 87 16 138/74 96 Intake and Output 03/13/18 03/13/18 03/14/18 15:59 23:59 07:59 Intake Total 350 / 350 Output Total 800 / 800 125 / 125 150 / 150 Balance -450 / -450 -125 / -125 -150 / -150 Intake: Oral 350 / 350 Output: Urine 800 / 800 125 / 125 150 / 150 Other: Meal Lunch Percent of Meal Consumed 60% Blood Glucose* 151 148 - Labs CBC & BMP: 03/13/18 02:05 03/14/18 05:39 Labs: Abnormal lab results RBC 3.73 M/mcL (3.82-4.97) L 03/11/18 05:59 Hgb 9.3 g/dL (11.5-15.4) L 03/13/18 02:05 Hct 29.3 % (35.3-44.9) L 03/13/18 02:05 RDW 15.0 % (11.5-14.5) H 03/11/18 05:59 MPV 9.1 fL (9.4-12.4) L 03/11/18 05:59 BUN 24 mg/dL (8-23) H 03/14/18 05:39 Creatinine 1.30 mg/dL (0.60-1.20) H 03/14/18 05:39 Est GFR ( Amer) 48 (> 60) L 03/14/18 05:39 Est GFR (Non-Af Amer) 40 (> 60) L 03/14/18 05:39 Glucose 114 mg/dL (70-105) H 03/14/18 05:39 POC Glucose 148 mg/dL (70-99) H 03/13/18 20:06 Hemoglobin A1c 6.6 % (-5.6) H 03/10/18 20:55 Calcium 8.0 mg/dL (8.6-10.3) L 03/14/18 05:39 Creatine Kinase 383 Units/L (30-223) H 03/14/18 05:39 - VTE Documentation of Mechanical Device: Venous foot pump, device Consult Discharge Plan - Plan Referrals: Eliazar Rubio DO [Primary Care Provider] -
[2018-03-14 07:18] VITALS: BP 139/75
[2018-03-14] MEDS: Insulin LISPRO 300 UNITS/3 ML VIAL SQ SCH ×2 (07:25→12:18)
[2018-03-14] MEDS: *HR* Morphine Sulfate SR (12 HR) 30 MG TABLET.ER PO SCH (08:05)
[2018-03-14] MEDS: amLODIPine 5 MG TABLET PO SCH (08:05)
[2018-03-14] MEDS: *HR* Pioglitazone 15 MG TABLET PO SCH (08:05)
[2018-03-14] MEDS: Aspirin Enteric Coated 81 MG Tablet PO SCH (08:05)
[2018-03-14] MEDS: Metoprolol XL (24 HR) Succ 50 MG TAB.ER.24H PO SCH (08:05)
--- NOTE | 2018-03-14 12:49 | Discharge Summary ---
- NOTES TO OUTPATIENT PROVIDER Notes to Outpatient Provider: s/p right TKR Orders not resulted at time of discharge: Pending orders 03/11/18 16:08 US anesthesia pain block [US] Routine 03/11/18 19:13 Surgical Pathology [PTH] Routine Date of Encounter: 03/14/18 Time of Encounter: 12:47 - Discharge Diagnosis (1) Femoral fracture Priority: Primary Status: Acute Qualifiers: Encounter type: initial encounter Femur location: distal epiphysis Fracture type: closed Fracture alignment: displaced Laterality: right Qualified Code(s): S72.441A - Displaced fracture of lower epiphysis (separation ) of right femur, initial encounter for closed fracture (2) Morbid obesity with BMI of 50.0-59.9, adult Priority: Secondary Status: Chronic (3) Diabetes mellitus Priority: Secondary Status: Chronic Qualifiers: Diabetes mellitus type: type 2 Diabetes mellitus exterminator insulin use: without exterminator use Diabetes mellitus complication status: with unspecified complications Qualified Code(s): E11.8 - Type 2 diabetes mellitus with unspecified complications (4) Hypertension Priority: Secondary Status: Chronic Qualifiers: Hypertension type: essential hypertension Qualified Code(s): I10 - Essential (primary) hypertension (5) Lactic acidosis Priority: Primary Status: Resolved (6) Chronic kidney disease, stage 3 Priority: Secondary Status: Chronic Hospital course: Ms. Sol is a 78 year old female with the above medical problems, who was admitted with right knee pain after sustaining a mechanical fall at home. Imaging studies in the emergency room showed right comminuted distal femoral fracture associated with complete destruction of the quadriceps tendon and patellar ligament. Orthopedics was consulted, patient underwent right knee distal femoral replacement with total knee replacement. She was noted to have postoperative blood loss anemia, which improved with transfusion of 2 units PRBC. Physical and occupational therapy evaluation was completed, recommended inpatient rehabilitation. Patient was noted to have acute on chronic renal failure along with mild rhabdomyolysis and elevated CK due to her fall, which improved with IV hydration. Home medications of diuretics and ARB have been held during this admission. ARB is being restarted at discharge, diuretic to be restarted in 3- 4 days. Patient is being discharged on subcutaneous Lovenox for DVT prophylaxis status post knee replacement. She continues to require significant amount of pain medications, will probably require a prolonged rehabilitation course. She is otherwise medically stable for discharge. Discharge discussed with: patient, family - Time Spent with Patient Total time spent providing and/or coordinating discharge services: Greater than 30 minutes (45 mion) - Discharge Medications Prescriptions: HYDROcodone/Acet 5/325 mg [[place] 5-325 mg] 1 tab PO Q6HR PRN 5 Days #10 tablet PRN Reason: Severe Pain Cyclobenzaprine [Flexeril] 5 mg PO Q8HR PRN 5 Days #10 tablet PRN Reason: Muscle Spasm Enoxaparin [Lovenox] 30 mg SQ Q12HR #14 syringe Morphine Sulfate SR (12 HR) [MS Contin] 30 mg PO BID 5 Days #10 tablet.er Home Medications: Allopurinol [Zyloprim 300 MG] 300 mg PO QPM 03/11/18 [History] Aspirin 81 mg PO QPM 03/11/18 [History] Cholecalciferol (D-3) [Vitamin D] 2,000 unit PO DAILY 03/11/18 [History] Cyanocobalamin (Vitamin B-12) [Vitamin B12] 1,000 mcg PO DAILY 03/11/18 [History ] Losartan Potassium [Cozaar] 100 mg PO QAM 03/11/18 [History] Metoprolol XL (24 HR) Succ [Toprol Xl] 100 mg PO QPM 03/11/18 [History] Omeprazole [PriLOSEC] 20 mg PO QAM 03/11/18 [History] Pioglitazone HCl [Actos] 15 mg PO QAM 03/11/18 [History] amLODIPine [Norvasc] 5 mg PO QPM 03/11/18 [History] Cyclobenzaprine [Flexeril] 5 mg PO Q8HR PRN 5 Days #10 tablet 03/14/18 [Rx] Enoxaparin [Lovenox] 30 mg SQ Q12HR #14 syringe 03/14/18 [Rx] HYDROcodone/Acet 5/325 mg [[place] 5-325 mg] 1 tab PO Q6HR PRN 5 Days #10 tablet 03/14/18 [Rx] Morphine Sulfate SR (12 HR) [MS Contin] 30 mg PO BID 5 Days #10 tablet.er [Rx] Furosemide [Lasix] 40 mg PO QAM #0 03/17/18 [Rx] Allergies/Adverse Reactions: 3 Allergy/AdvReac Type Severity Reaction Status Date / Time moxifloxacin [From Avelox] Allergy Unknown unknown Verified 03/11/18 10:00 pseudoephedrine AdvReac Difficulty Verified 03/11/18 10:00 [From Sudafed] Breathing quinapril AdvReac Swelling Verified 03/11/18 10:00 of Lip/Tongue/Throat Date of admission: 03/10/18 19:40 Primary care physician: Eliazar Rubio Consults: 03/10/18 20:45 Consult to Orthopedic Surgery [CONS] Routine Consulting Provider: [facility] Reason for Consult: Fall with fracture of R femur Call Completed: Yes 03/11/18 20:50 Consult to Occupational Therapy [CONS] Routine Comment: Evaluate, develop and implement POC Reason for Consult: post knee surgery Does patient have active BEDREST order?: No Is patient medically & hemodynamically stable?: Yes Consult to Orthopedic Navigator [CONS] [CONS] Routine Consult to Physical Therapy [CONS] Routine Comment: Evaluate, develop and impliment POC Reason for Consult: post knee surgery Does patient have active BEDREST order?: No Is patient medically & hemodynamically stable?: Yes Consult to Detacher [CONS] Routine Reason for SW Consult: post op joint replacement RT Post Op Consult [CONS] Routine Discharging clinician: Marni Ramírez Anticipated date of discharge: 03/14/18 - Constitutional Vitals: Temp Pulse Resp BP Pulse Ox 98.5 F 83 16 139/75 94 03/14/18 07:12 03/14/18 07:12 03/14/18 07:12 03/14/18 07:12 03/14/18 07:12 General appearance: Present: A&O X 3, morbidly obese, answers questions appropriately - Cardiovascular Cardiovascular exam: Present: RRR (double beats ?bigemini), +S1, +S2. Absent: diastolic murmur, gallop, rubs, systolic murmur - Patient Status Disposition: Transfer SNF Condition: Fair Functional capacity at discharge: uses cane/walker Overall status at discharge: patient is progressing back to baseline - Discharge Instructions Follow Up With: Eliazar Rubio DO [Primary Care Provider] - Additional Instructions: F/up with PCP in 1-2 weeks F/up with [facility] as scheduled - Diet and Activity Activity: as per physical therapy Diet: diabetic diet, low fat, low cholesterol, low salt diet - VTE Documentation of Mechanical Device: Venous foot pump, device
--- NOTE | 2018-03-14 12:55 | Physician Discharge Referral ---
ExtendedCare Referral Info Transfer To: [facility] Provider in Charge: Marni Ramírez Provider in Charge after Transfer: PCP Institutional Level of Care: Skilled - Diagnosis (1) Femoral fracture Priority: Primary Status: Acute (2) Morbid obesity with BMI of 50.0-59.9, adult Priority: Secondary Status: Chronic (3) Diabetes mellitus Priority: Secondary Status: Chronic (4) Hypertension Priority: Secondary Status: Chronic (5) Lactic acidosis Priority: Primary Status: Resolved (6) Chronic kidney disease, stage 3 Priority: Secondary Status: Chronic Expected Duration of Placement: 3 weeks Prognosis: Fair Aware of Diagnosis: Patient, Family Aware of Prognosis: Patient, Family - Transfer Medications Prescriptions: HYDROcodone/Acet 5/325 mg [[place] 5-325 mg] 1 tab PO Q6HR PRN 5 Days #10 tablet PRN Reason: Severe Pain Cyclobenzaprine [Flexeril] 5 mg PO Q8HR PRN 5 Days #10 tablet PRN Reason: Muscle Spasm Enoxaparin [Lovenox] 30 mg SQ Q12HR #14 syringe Morphine Sulfate SR (12 HR) [MS Contin] 30 mg PO BID 5 Days #10 tablet.er Home Medications: Allopurinol [Zyloprim 300 MG] 300 mg PO QPM 03/11/18 [History] Aspirin 81 mg PO QPM 03/11/18 [History] Cholecalciferol (D-3) [Vitamin D] 2,000 unit PO DAILY 03/11/18 [History] Cyanocobalamin (Vitamin B-12) [Vitamin B12] 1,000 mcg PO DAILY 03/11/18 [History ] Losartan Potassium [Cozaar] 100 mg PO QAM 03/11/18 [History] Metoprolol XL (24 HR) Succ [Toprol Xl] 100 mg PO QPM 03/11/18 [History] Omeprazole [PriLOSEC] 20 mg PO QAM 03/11/18 [History] Pioglitazone HCl [Actos] 15 mg PO QAM 03/11/18 [History] amLODIPine [Norvasc] 5 mg PO QPM 03/11/18 [History] Cyclobenzaprine [Flexeril] 5 mg PO Q8HR PRN 5 Days #10 tablet 03/14/18 [Rx] Enoxaparin [Lovenox] 30 mg SQ Q12HR #14 syringe 03/14/18 [Rx] HYDROcodone/Acet 5/325 mg [[place] 5-325 mg] 1 tab PO Q6HR PRN 5 Days #10 tablet 03/14/18 [Rx] Morphine Sulfate SR (12 HR) [MS Contin] 30 mg PO BID 5 Days #10 tablet.er [Rx] Furosemide [Lasix] 40 mg PO QAM #0 03/17/18 [Rx] Allergies/Adverse Reactions: 3 Allergy/AdvReac Type Severity Reaction Status Date / Time moxifloxacin [From Avelox] Allergy Unknown unknown Verified 03/11/18 10:00 pseudoephedrine AdvReac Difficulty Verified 03/11/18 10:00 [From Sudafed] Breathing quinapril AdvReac Swelling Verified 03/11/18 10:00 of Lip/Tongue/Throat - Respiratory Orders Oxygen / L per min (1-2L/min via NC, to maintain O2 sat>90%) Smoking Cessation: Smoking cessation has been advised. For more information, call the [place] Tobacco Quit Line at 2-526-SKQJ-NOW. - Advance Directives Code Status: Full Code - Mobility Orders Ambulate - Rehabiliation Orders Rehab Potential: Fair Rehab Orders: ROM Exercises, Evaluation for Physical Therapy, Evaluation for Occupational Therapy - Diet Orders No Concentrated Sweets (diabetic), Cardiac CERTIFICATION: I certify that the transfer of the above named patient to an Extended Care Facility is necessary for the continuing treatment of the diagnosis listed. The above information is true and accurate reflection of patient's current condition. Confidential - Redisclosure prohibited without a patient's written consent.
== END 2018-03-14 15:16 | DRG 470 ==
LOC: 3NENU 19:40 → SUATTDRO 19:40
PROVIDERS: ADMIT Internal Medicine; ATTEND Internal Medicine

== ENCOUNTER 2020-06-27 01:13 | Inpatient (IN) ==
[2020-06-27] MEDS ORDERED: Naloxone 0.4 MG/ML INJ IVP PRN (05:18)
[2020-06-27] MEDS ORDERED: D5% in Water 1,000 ML IVC PRN (06:00)
[2020-06-27] MEDS ORDERED: *HR* Dextrose 50 % in Water (Vial) 50 ML VIAL IVP PRN (06:00)
[2020-06-27] MEDS ORDERED: Dextrose Gel 15 GM/37.5 ML TUBE PO PRN ×2 (06:00)
[2020-06-27 06:50] LABS: Basophils % 0.3 %; Eosinophils # 0.2 K/mcL (0.0-0.6); Hematocrit 33.3 % (35.3-44.9); Hemoglobin 10.6 g/dL (11.5-15.4); Immature Granulocytes % 1.3 % (0-4); Lymphocytes # 0.7 K/mcL (0.6-4.6); Lymphocytes % 7.2 %; Mean Corpuscular HGB Conc 31.8 g/dL (31.6-35.5); Mean Corpuscular Hemoglobin 26.1 pg (28.0-33.3); Mean Platelet Volume 9.9 fL (9.4-12.4); Monocytes # 0.6 K/mcL (0.0-1.3); Monocytes % 6.6 %; Neutrophils # 7.5 K/mcL (1.6-8.9); Platelet Count 373 K/mcL (140-400); Red Blood Count 4.06 M/mcL (3.82-4.97); Red Cell Distribution Width 15.7 % (11.5-14.5); Segmented Neutrophils % 82.6 %; White Blood Count 9.1 K/mcL (4.3-11.1)
[2020-06-27 07:00] LABS: INR 1.2; Prothrombin Time 13.6 Seconds (9.4-12.1)
[2020-06-27] MEDS: Morphine Sulfate ER (12 HR) 30 MG TABLET.ER PO SCH ×2 (07:01→17:25)
[2020-06-27 07:06] LABS: Calcium 8.5 mg/dL (8.6-10.3); Magnesium 1.6 mg/dL (1.6-2.6); Phosphorous 2.6 mg/dL (2.7-4.5); Potassium 3.3 mEq/L (3.5-5.1)
[2020-06-27] MEDS ORDERED: Magnesium Oxide 400 MG TABLET PO ONE (09:00)
[2020-06-27] MEDS: cephALEXin 500 MG CAPSULE PO SCH ×3 (09:06→20:55)
[2020-06-27] MEDS: Insulin LISPRO 300 UNITS/3 ML VIAL SQ SCH ×3 (09:08→17:47)
[2020-06-27 10:51] LABS: Thyroid Stimulating Hormone 2.246 mcIU/mL (0.340-5.600)
[2020-06-27 11:00] LABS: Folate 6.4 ng/mL (3.0-16.0)
[2020-06-27 11:07] LABS: Vitamin B12 > 1500 pg/mL (250-1100)
[2020-06-27] MEDS: *HR* Heparin 5,000 UNIT/ML VIAL SQ SCH ×2 (14:06→20:55)
[2020-06-27] MEDS: amLODIPine 5 MG TABLET PO SCH (16:24)
[2020-06-27] MEDS: Acetaminophen 325 MG TABLET PO PRN (16:44)
[2020-06-27] MEDS ORDERED: Aspirin 81 MG TAB.CHEW PO SCH (18:00)
[2020-06-27] MEDS ORDERED: allopurinoL 300 MG TABLET PO SCH (18:00)
[2020-06-27] MEDS: Gentamicin Oint 15 GM TUBE TP SCH (18:41)
[2020-06-27] MEDS ORDERED: Magnesium Sulfate 1 GM/102 ML PIGGYBACK IVPB ONE (20:20)
[2020-06-27] MEDS ORDERED: Insulin LISPRO 300 UNITS/3 ML VIAL SQ SCH (21:00)
[2020-06-28 05:32] LABS: White Blood Count 8.8 K/mcL (4.3-11.1)
[2020-06-28 05:33] LABS: Basophils % 0.3 %; Eosinophils # 0.5 K/mcL (0.0-0.6); Hematocrit 34.9 % (35.3-44.9); Hemoglobin 10.8 g/dL (11.5-15.4); Immature Granulocytes % 1.4 % (0-4); Lymphocytes % 10.8 %; Mean Corpuscular HGB Conc 30.9 g/dL (31.6-35.5); Mean Corpuscular Volume 83.9 fL (83.0-100.0); Mean Platelet Volume 9.9 fL (9.4-12.4); Monocytes # 0.6 K/mcL (0.0-1.3); Monocytes % 6.7 %; Neutrophils # 6.6 K/mcL (1.6-8.9); Platelet Count 420 K/mcL (140-400); Red Blood Count 4.16 M/mcL (3.82-4.97); Segmented Neutrophils % 74.8 %
[2020-06-28 05:50] LABS: Calcium 8.4 mg/dL (8.6-10.3); Potassium 3.7 mEq/L (3.5-5.1)
[2020-06-28] MEDS: Morphine Sulfate ER (12 HR) 30 MG TABLET.ER PO SCH (05:58)
[2020-06-28] MEDS: *HR* Heparin 5,000 UNIT/ML VIAL SQ SCH (05:59)
[2020-06-28] MEDS: Insulin LISPRO 300 UNITS/3 ML VIAL SQ SCH ×2 (07:46→12:04)
[2020-06-28] MEDS: amLODIPine 5 MG TABLET PO SCH (08:12)
[2020-06-28] MEDS: cephALEXin 500 MG CAPSULE PO SCH (08:14)
[2020-06-28] MEDS: Gentamicin Oint 15 GM TUBE TP SCH (08:16)
[2020-06-28] MEDS ORDERED: Metoprolol XL (24 HR) Succ 50 MG TAB.ER.24H PO SCH (09:00)
[2020-06-28] MEDS ORDERED: Cholecalciferol (D-3) 1,000 UNIT (25MCG) TABLET PO SCH (09:00)
[2020-06-28] MEDS ORDERED: Furosemide 40 MG TABLET PO SCH (09:00)
[2020-06-28] MEDS ORDERED: Cyanocobalamin (B-12) 1,000 MCG TABLET PO SCH (09:00)
[2020-06-28] MEDS ORDERED: *HR* Pioglitazone 15 MG TABLET PO SCH (09:15)
[2020-06-28 11:44] VITALS: BP 128/59
[2020-06-28] MEDS: Acetaminophen 325 MG TABLET PO PRN (13:20)
== END 2020-06-28 14:53 | DRG 948 ==
LOC: 3NENU → SUATTDRO 04:23
PROVIDERS: ADMIT Family Medicine; ATTEND Internal Medicine